=== PATIENT | male | born 1980 | race Two or more races ===

== ENCOUNTER 2024-01-01 16:13 | Emergency (ER) | payer SELFPAY ==
[2024-01-01 16:14] VITALS: BMI 26.9
[2024-01-01 16:21] VITALS: BP 130/79; PULSE 73; RESP 16; TEMP 37.3; O2SAT 98
--- NOTE | 2024-01-01 16:51 | XR_ITS ---
Examination: CT abdomen and pelvis without contrast. Coronal 3-D reconstructions. Sagittal 2-D reconstructions. Date and time of exam:January 01, 2024 1739 hrs. Comparison August 20, 2021 Indications: Right-sided flank pain beginning 3 days ago CTDI: vol (mGy): 7.93 DLP: (mGycm): 194 Technique: Axial images of the abdomen have been obtained, 3 mm slice thickness Intravenous contrast material has not been administered. Low dose protocols were performed. One or more of the following dose reduction techniques were used; automated exposure control, adjustment of the mA and/or KV according to patient size, use of iterative reconstruction technique. Findings: No focal liver or splenic lesions Contracted gallbladder gallbladder wall appears mildly thickened No pancreatic or adrenal mass No renal or ureteral calculi, no hydronephrosis Aorta normal size Normal appendix No bowel obstruction Colonic diverticulosis Acute diverticulitis distal descending colon and sigmoid colon No peridiverticular abscess Urinary bladder wall thickening and air droplet in the urinary bladder, axial image 184 suspicious for fistula between the inflamed sigmoid colon and the bladder No prostatomegaly Impression: Acute diverticulitis distal descending colon and sigmoid colon Urinary bladder wall thickening and air droplet in the urinary bladder, axial image 184 suspicious for fistulous tract between the inflamed colon and the bladder,. No pelvic abscess
--- NOTE | 2024-01-01 16:52 | PD.EDRME ---
Rapid Medical Screening Exam RME Arrival date/time: 01/01/24 16:13 43-year-old male presents emergency department complaints of UTI symptoms Chief Complaint: Abdominal Pain Time Seen by Provider: 01/01/24 16:37 Vital signs: Vital Signs Temperature 99.1 F 01/01/24 16:21 Pulse Rate 73 01/01/24 16:21 Respiratory Rate 16 01/01/24 16:21 Blood Pressure 130/79 01/01/24 16:21 Pulse Oximetry (%) 98 01/01/24 16:21 Oxygen Delivery Method Room Air 01/01/24 16:21
[2024-01-01 17:26] LABS: Basophils # (Auto) 0.1 Thou/mm3 (0.0-0.2); Basophils % (Auto) 1 % (0-2.5); Eosinophils # (Auto) 0.1 Thou/mm3 (0.0-0.5); Eosinophils % (Auto) 1 % (0-10); Hematocrit 40.7 % (41.0-53.0); Hemoglobin 13.6 g/dL (13.5-16.0); Immature Granulocytes % (Auto) 0 % (0-0); Immature Granulocytes Auto 0.02 Thou/mm3 (0.00-0.00); Lymphocytes # (Auto) 1.2 Thou/mm3 (1.0-4.8); Lymphocytes % (Auto) 13 % (10-50); Mean Corpuscular HGB Conc 33.4 g/dl (31.0-37.0); Mean Corpuscular Hemoglobin 27.1 pg (25.0-35.0); Mean Corpuscular Volume 81 fL (80-100); Monocytes % (Auto) 11 % (0-12); Neutrophils # (Auto) 6.6 Thou/mm3 (1.8-7.7); Neutrophils % (Auto) 74 % (37-80); Nucleated Red Blood Cell % 0 /100 WBC (0); Platelet Count 348 Thou/mm3 (140-440); RDW Standard Deviation 40.1 fL (35.1-43.9); Red Blood Count 5.01 Miln/mm3 (4.50-5.90)
[2024-01-01 17:48] LABS: Alanine Aminotransferase 15 U/L (10-49); Albumin, Serum 4.4 gm/dL (3.5-5.0); Albumin/Globulin Ratio 1.3 (1.2-2.2); Alkaline Phosphatase 68 U/L (46-116); Anion Gap 6 (7-16); BUN/Creatinine Ratio 12 Ratio (12-20); Bilirubin,Total 0.5 mg/dL (0.3-1.2); Blood Urea Nitrogen 13 mg/dL (9-23); Calcium 9.6 mg/dL (8.3-10.6); Calcium (Corrected) 9.6 mg/dL (8.5-10.1); Carbon Dioxide 28.4 mMol/L (20.0-31.0); Chloride 101 mMol/L (98-107); Creatinine (Component) 1.1 mg/dL (0.6-1.3); Estimated Creatinine Clearance 73.8 mL/min (>60); Globulin 3.5 gm/dL (2.3-3.5); Glucose 100 mg/dL (74-106); Lipase 38 U/L (12-53); Osmolality,Calculated 270 (275-295); Potassium 4.1 mMol/L (3.4-5.1); Sodium 135 mMol/L (136-145); Total Protein 7.9 gm/dL (5.7-8.2); eGFR > 60 See Note
[2024-01-01 17:52] LABS: Collection Type, Urine Clean Catch; Squamous Epithelial Cell,Urine 0 /hpf (0-5)
[2024-01-01 18:01] LABS: Bilirubin,Urine Negative (Negative); Blood,Urine 1+ (Negative); Budding Yeast,Urine Present; Clarity,Urine Clear (Clear/Hazy); Color,Urine Lt-Yellow (Lt Yel-Yel); Glucose, Urine Negative (Negative); Ketones,Urine Negative (Negative); Leukocyte Esterase,Urine Positive (Negative); Nitrite,Urine Negative (Negative); PH,Urine 6.5 (5.0-7.0); Protein,Urine Trace (Neg - Trace); RBC,Urine 8 /hpf (0-3); Specific Gravity,Urine 1.013 (1.001-1.035); Urobilinogen,Urine Negative mg/dL (0.0-1.0); WBC,Urine 54 /hpf (0-5)
[2024-01-01 18:01] LABS: Aspartate Amino Transferase 12 U/L (0-34)
[2024-01-01 18:13] LABS: Culture Indicated,Urine Yes
[2024-01-01 20:11] VITALS: BP 101/67; PULSE 66; RESP 18; TEMP 37.2; O2SAT 95
--- NOTE | 2024-01-01 20:19 | EDNOTE_ITS ---
ED General RME/HPI General Chief complaint: Abdominal Pain Stated complaint: BLADDER INFECTION AND RIGHT FLANK PAIN Time Seen by Provider: 01/01/24 16:37 Arrival date/time: 01/01/24 16:13 CC: Flank pain HPI ongoing for the past 2 days denies fever chills heavy lifting repetitive motion or blunt trauma. Patient admits he has a chronic diverticulitis and has been ongoing for a long time, the patient is not concerned about that patient also states that he is on 2 rounds of antibiotics the first 1 for over 30 days in the last 3 months for a UTI . Patient denies chest pain shortness of breath or difficulty breathing no other complaints at this time. RME / HPI RME / HPI narrative: 01/01/24 16:13 43-year-old male presents emergency department complaints of UTI symptoms Related Data Previous Rx's ?Medication ?Instructions ?Recorded methocarbamol 750 mg tablet 750 mg PO TID PRN pain #30 tabs 05/13/20 (Robaxin-750) ciprofloxacin HCl 500 mg tablet 500 mg PO BID #14 tabs 08/20/21 (Cipro) hydrocodone 5 mg-acetaminophen 325 1 tab PO Q6H PRN pain #12 tabs 08/20/21 mg tablet metronidazole 500 mg tablet 500 mg PO TID #21 tabs 08/20/21 meloxicam 7.5 mg tablet 7.5 mg PO QDAY #10 tabs 01/01/24 tamsulosin 0.4 mg capsule (Flomax) 0.4 mg PO QDAY #30 caps 01/01/24 Allergies Allergy/AdvReac Type Severity Reaction Status Date / Time No Known Allergies Allergy Verified 01/01/24 16:16 Review of Systems Review of Systems Narrative Review of Systems: GEN: No fever, no chills, no weight loss EYES: No discharge, no visual changes, no pain HEENT: No ear pain, no congestion, no sore throat PULM: No shortness of breath, no cough, no congestion CV: No chest pain, no dyspnea on exertion, no palpitations GI: No nausea, no vomiting, no diarrhea, no pain, no constipation : No frequency, no urgency, no dysuria MUSC/SKEL: No joint pain, + flank pain SKIN: No rash PSYCH: No hallucinations, no depression HEME/LYMPH: No easy bleeding or bruising tendencies NEURO: No weakness, no headache Past Medical History Past Medical History NEUROLOGIC: Negative Neurological Disorders or Seizures CARDIAC: Negative Cardiac Disorders or Congestive Heart Failure RESPIRATORY: Negative Chronic Obstructive Pulmonary Disease (COPD) or Asthma GASTROINTESTINAL: Positive Gastrointestinal Disorders and Diverticulitis GENITOURINARY: Negative Genitourinary Disorders or Renal Disease REPRODUCTIVE: Negative Breast Cancer MUSCULOSKELETAL: Negative Musculoskeletal Disorders ENDOCRINE: Negative Endocrine Disorders, Diabetes Mellitus Type 1 or Diabetes Mellitus Type 2 HEMATOLOGIC: Negative Blood Disorders or Sickle Cell Disease OTHER HISTORY: Positive Hospitalization; Negative Autoimmune Disease, Down Syndrome, Developmental Delay, Shingles, Falls, Anesthesia Reactions, Organ Transplant, Clostridium Difficile, Cancer or Breast Cancer Surgical History SURGICAL: Negative Endocrine Surgery, Ear Surgery, Nephrectomy, Joint Replacement, Neurologic Surgery, Mastectomy or Organ Transplant Social History SMOKING STATUS: Never smoker SUBSTANCE USE: does not use ED Exam Narrative Physical exam: [General: acute distress Head normocephalic HEENT: Within acceptable limits Neck is supple nontender Chest equal chest rise nontender to palpation Respiratory: Clear to auscultation no wheezes crackles or rubs CV: Rate rhythm is regular no murmurs rubs or clicks Abdomen is soft nontender in all 4 quadrants, no masses positive bowel sounds all 4 quadrants Back: No CVA tenderness no spinous process tenderness from cervical spine thoracic and lumbar spine Skin: Intact no petechiae rash induration ulceration or crepitus Extremities: Moving all extremity against resistance cap refill less than 2 seconds neurosensory intact Neuro: Awake alert oriented x3 Glascow coma 15 no focal deficits] Course Course Course Narrative: Patient's case discussed with Dr. Fischer, feels there is no relationship of diverticulitis in the bladder. Patient be discharged home to follow-up with a primary care provider. Quality Measures none Orders Category Date Time Status CT abdomen pelvis wo con Stat Exams 01/01/24 16:51 Completed CBC Stat Lab 01/01/24 17:08 Completed Chlamydia/GC/TV - PCR Stat Lab 01/01/24 16:58 Received Comprehensive Metabolic Panel Stat Lab 01/01/24 17:08 Completed Lipase Stat Lab 01/01/24 17:08 Completed UA, C/S IF [Urinalysis, C/S if Indicated] Stat Lab 01/01/24 16:58 Completed Urine Culture Stat Lab 01/01/24 16:58 Received Vital Signs Vital signs: Vital Signs Temperature 99.1 F 11/19/24 16:21 Pulse Rate 73 01/01/24 16:21 Respiratory Rate 16 01/01/24 16:21 Blood Pressure 130/79 01/01/24 16:21 Pulse Oximetry (%) 98 01/01/24 16:21 Oxygen Delivery Method Room Air 01/01/24 16:21 [facility] Patient data External records reviewed:: [facility] previous records Clinical information provided by:: patient Social determinants that could affect healthcare access:: none Patient has the following chronic illnesses:: Diverticulitis, recurrent UTI in the past 3 months How is presenting disease/condition affected by chronic disease/condition?: u neffected by Evaluation data The following diagnostics were reviewed and interpreted by me:: lab results and radiology exam(s) Lab and/or radiology exams considered but not ordered:: CBC shows no acute leukocytosis anemia thrombocytopenia CMP shows no acute electrolyte imbalances renal impairment transaminitis or T. bili elevation CT shows diverticulitis in the distal descending colon and sigmoid colon, there is also, and urinary bladder wall thickening with air droplets in the urinary bladder. Interpretation Summary: Marcial droplets of air in the bladder, not a primary concern at this point in time patient needs to follow-up with urologist. Medications Medications considered but not ordered:: None Medication administrations:: None Consultations Consultation(s) initiated? (list below): No Diagnosis Differential Diagnosis ED Complaint MDM: Diverticulitis hydroureter nephrosis hydroureter Most likely diagnosis given after review of the tests above:: Flank pain Admission Indicated Admission indicated?: not indicated Explain why admission is indicated or not indicated:: Stable for outpatient follow-up Admission Request Was there a request for admission?: No Disposition Plan Disposition Plan: Discharge Discharge Attestation Discharge Attestation: The patient and all family members were given an opportunity to ask questions and understood the discharge instructions. Discharge instructions specifically effects, indications for sooner follow up or return to the emergency department, and the expected course of current diagnosis. Patient condition: Stable Medical Decision Making Differential Diagnosis Differential Diagnosis: Diverticulitis hydroureter nephrosis hydroureter Lab Data 01/01/24 17:08 01/01/24 17:08 Labs: Lab Results 01/01/24 01/01/24 Range/Units 16:58 17:08 WBC 9.0 (3.8-10.6) Thou/mm3 RBC 5.01 (4.50-5.90) Miln/mm3 Hgb 13.6 (13.5-16.0) g/dL Hct 40.7 L (41.0-53.0) % MCV 81 (80-100) fL MCH 27.1 (25.0-35.0) pg MCHC 33.4 (31.0-37.0) g/dl RDW Std Deviation 40.1 (35.1-43.9) fL Plt Count 348 (140-440) Thou/mm3 Neut % (Auto) 74 (37-80) % Lymph % (Auto) 13 (10-50) % Cannon % (Auto) 11 (0-12) % Eos % (Auto) 1 (0-10) % Baso % (Auto) 1 (0-2.5) % Neut # (Auto) 6.6 (1.8-7.7) Thou/mm3 Lymph # (Auto) 1.2 (1.0-4.8) Thou/mm3 Cannon # (Auto) 1.0 H (0.0-0.8) Thou/mm3 Eos # (Auto) 0.1 (0.0-0.5) Thou/mm3 Baso # (Auto) 0.1 (0.0-0.2) Thou/mm3 Immature Gran # (Auto) 0.02 H (0.00-0.00) Thou/mm3 Absolute Nucleated RBC 0.00 (0.00-0.00) Thou/mm3 Immature Gran % 0 (0-0) % Nucleated RBC % 0 (0) /100 WBC Sodium 135 L (136-145) mMol/L Potassium 4.1 (3.4-5.1) mMol/L Chloride 101 (98-107) mMol/L Carbon Dioxide 28.4 (20.0-31.0) mMol/L Anion Gap 6 L (7-16) BUN 13 (9-23) mg/dL Creatinine 1.1 (0.6-1.3) mg/dL Estim Creat Clear Calc 73.8 (>60) mL/min eGFR > 60 (60 - ) See Note BUN/Creatinine Ratio 12 (12-20) Ratio Glucose 100 (74-106) mg/dL Calculated Osmolality 270 L (275-295) Calcium 9.6 (8.3-10.6) mg/dL Corrected Calcium 9.6 (8.5-10.1) mg/dL Total Bilirubin 0.5 (0.3-1.2) mg/dL AST 12 (0-34) U/L ALT 15 (10-49) U/L Alkaline Phosphatase 68 (46-116) U/L Total Protein 7.9 (5.7-8.2) gm/dL Albumin 4.4 (3.5-5.0) gm/dL Globulin 3.5 (2.3-3.5) gm/dL Albumin/Globulin Ratio 1.3 (1.2-2.2) Lipase 38 (12-53) U/L Ur Collection Type Clean Catch Urine Color Lt-Yellow (Lt Yel-Yel) Urine Clarity Clear (Clear/Hazy) Urine pH 6.5 (5.0-7.0) Ur Specific [place] 1.013 (1.001-1.035) Urine Protein Trace (Neg - Trace) Urine Glucose (UA) Negative (Negative) Urine Ketones Negative (Negative) Urine Blood 1+ A (Negative) Urine Nitrite Negative (Negative) Urine Bilirubin Negative (Negative) Urine Urobilinogen (Auto) Negative (0.0-1.0) mg/dL Ur Leukocyte Esterase Positive (Negative) Urine RBC 8 H (0-3) /hpf Urine WBC 54 H (0-5) /hpf Ur Squamous Epith Cells 0 (0-5) /hpf Urine Bacteria None (None) Urine Yeast (Budding) Present A (None) Ur Culture Indicated? Yes Discharge Plan Plan Patient Disposition: HOME (Self Care) Patient condition on transfer: Stable Prescriptions/Referrals Prescriptions/Med Rec: New meloxicam 7.5 mg tablet 7.5 mg PO QDAY Qty: 10 0RF tamsulosin [Flomax] 0.4 mg capsule 0.4 mg PO QDAY Qty: 30 0RF No Action ciprofloxacin HCl [Cipro] 500 mg tablet 500 mg PO BID Qty: 14 0RF metronidazole 500 mg tablet 500 mg PO TID Qty: 21 0RF hydrocodone-acetaminophen 5-325 mg tablet 1 tab PO Q6H MDD 4 PRN (Reason: pain) Qty: 12 0RF methocarbamol [Robaxin-750] 750 mg tablet 750 mg PO TID PRN (Reason: pain) Qty: 30 0RF Referrals: Rashard Santos MD [Primary Care Provider] - In 1 week Problem List Clinical Impression: Right flank pain Patient/Caregiver Discharge Instructions Education Materials: ED Diverticulitis, ED Flank Pain, Uncertain Cause Print Language: Pashto Stand Alone Forms: [employer] Award Info., Work/School Release, Patient Portal Info Letter PA/STORE SALES MANAGER Supervising Physician PA/STORE SALES MANAGER Supervising Physician: Lor Mcgill ENP
[2024-01-02 09:42] LABS: Chlamydia trachomatis PCR Negative (Not Detect); Neisseria Gonorrhoeae DNA PCR Negative (Not Detect); Trichomonas Negative (Negative)
== END 2024-01-01 20:51 | disposition home or self-care (01) ==
PROVIDERS: Nurse Practitioner Primary Care; Emergency Provider Emergency Medicine; PCP Psychiatry & Neurology Neurology; Referring Provider Emergency Medicine
DX: K57.32 Diverticulitis of large intestine without perforation or abscess without bleeding (principal)
CPT/HCPCS: 36415; 74176; 80053; 81001; 83690; 85025; 87086; 87491; 87591; 87661; 99284

== ENCOUNTER 2024-06-12 06:35 | Day surgery (SDC) | payer MEDICAID, SELFPAY ==
[2024-06-12] VITALS (9 sets, daily range): BP systolic 92–109; BP diastolic 47–73; PULSE 52–58; RESP 12–18; TEMP 36.1–36.7; O2SAT 99–100; BMI 26.9
[2024-06-12] MEDS: SODIUM CHLORIDE 0.9% 500 ML 500 ML 20 ML IV (07:20)
[2024-06-12] MEDS: DiphenhydrAMINE INJ 50 MG/ML VIAL 25 MG IV (07:30)
[2024-06-12] MEDS: fentaNYL CIT INJ 50 mCg/ML AMP 2ML (ASD USE ONLY) IV (07:33)
[2024-06-12] MEDS: MIDAZOLAM INJ 1 MG/ML VIAL 2 ML (ASD USE ONLY) 2 MG IV (07:33)
== END 2024-06-12 08:27 | disposition home or self-care (01) ==
PROVIDERS: PCP Family Medicine; Referring Provider Surgery; Visit Provider Surgery
PROC: 0DBE8ZX Excision of Large Intestine, Via Natural or Artificial Opening Endoscopic, Diagnostic (ICD-10-PCS; CPT 45380; principal; 2024-06-12 07:30)
DX: K57.30 Diverticulosis of large intestine without perforation or abscess without bleeding (principal); D12.0 Benign neoplasm of cecum; K56.699 Other intestinal obstruction unspecified as to partial versus complete obstruction; K64.1 Second degree hemorrhoids; Z86.0100 Personal history of colon polyps, unspecified
CPT/HCPCS: 45380; A4649; J1200; J2250; J3010; J7040

== ENCOUNTER 2024-08-01 07:50 | Inpatient (IN) | payer MEDICAID, SELFPAY ==
[2024-07-30 10:25] VITALS: BMI 27.3
[2024-07-30 11:59] LABS: Basophils # (Auto) 0.1 Thou/mm3 (0.0-0.2); Basophils % (Auto) 1 % (0-2.5); Eosinophils # (Auto) 0.2 Thou/mm3 (0.0-0.5); Eosinophils % (Auto) 2 % (0-10); Hematocrit 44.7 % (41.0-53.0); Hemoglobin 14.8 g/dL (13.5-16.0); Immature Granulocytes % (Auto) 0 % (0-0); Immature Granulocytes Auto 0.03 Thou/mm3 (0.00-0.00); Lymphocytes # (Auto) 1.5 Thou/mm3 (1.0-4.8); Lymphocytes % (Auto) 20 % (10-50); Mean Corpuscular HGB Conc 33.1 g/dl (31.0-37.0); Mean Corpuscular Hemoglobin 27.1 pg (25.0-35.0); Mean Corpuscular Volume 82 fL (80-100); Monocytes # (Auto) 0.7 Thou/mm3 (0.0-0.8); Monocytes % (Auto) 9 % (0-12); Neutrophils # (Auto) 5.2 Thou/mm3 (1.8-7.7); Neutrophils % (Auto) 68 % (37-80); Nucleated Red Blood Cell % 0 /100 WBC (0); Platelet Count 315 Thou/mm3 (140-440); RDW Standard Deviation 42.8 fL (35.1-43.9); Red Blood Count 5.46 Miln/mm3 (4.50-5.90); White Blood Count 7.6 Thou/mm3 (3.8-10.6)
[2024-07-30 12:12] LABS: Alanine Aminotransferase 18 U/L (10-49); Albumin, Serum 4.4 gm/dL (3.5-5.0); Albumin/Globulin Ratio 1.5 (1.2-2.2); Alkaline Phosphatase 64 U/L (46-116); Anion Gap 6 (7-16); Aspartate Amino Transferase 14 U/L (0-34); BUN/Creatinine Ratio 13 Ratio (12-20); Bilirubin,Total 0.5 mg/dL (0.3-1.2); Blood Urea Nitrogen 13 mg/dL (9-23); Calcium 9.2 mg/dL (8.3-10.6); Calcium (Corrected) 9.2 mg/dL (8.5-10.1); Carbon Dioxide 31.2 mMol/L (20.0-31.0); Chloride 102 mMol/L (98-107); Estimated Creatinine Clearance 87.1 mL/min (>60); Glucose 107 mg/dL (74-106); Osmolality,Calculated 277 (275-295); Potassium 4.2 mMol/L (3.4-5.1); Sodium 139 mMol/L (136-145); Total Protein 7.4 gm/dL (5.7-8.2); eGFR > 60 See Note
[2024-08-01] VITALS (10 sets, daily range): BP systolic 114–155; BP diastolic 72–83; PULSE 58–83; RESP 12–98; TEMP 36.2–36.8; O2SAT 98–100; BMI 26.4
--- NOTE | 2024-08-01 07:52 | ESHP_ITS ---
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 The patient was referred for colovesical fistula. He is a Urdu-speaking male. He had a history of recurrent UTIs. He has burning in the urine. He passes some pieces of fragments in his urine. There is no gross hematuria. Nocturia none. He has a history of colitis. PREVIOUS SURGERIES: None. LABORATORY DATA: Urine C and S revealed E. faecalis infection, sensitive to Cipro and nitrofurantoin. He also had E. coli urinary tract infection, sensitive to Cipro. PAST MEDICAL HISTORY: There is no history of diabetes mellitus and no history of hypertension. The patient has history of colitis. SOCIAL HISTORY: The patient has 5 children. ALLERGIES: None known. MEDICATIONS: The patient takes no medicine. CLINICAL EXAMINATION: HEENT: Normal. NECK: Supple. LUNGS: Clear. CARDIOVASCULAR: Heart sounds are normal. ABDOMEN: Soft without any organomegaly. DIAGNOSTIC STUDIES: The patient had CT scan of the abdomen and pelvis, which revealed fistula between the inflamed sigmoid colon and the bladder. Cystoscopy revealed inflamed cystitis on the dome of the bladder on the left side. IMPRESSION: Colovesical fistula. Dr. Locke is going to repair colovesical fistula. He has asked me to put ureteral stents in this patient. The patient is scheduled to have cystoscopy and bilateral ureteral stent placement to identify the ureter during his surgery for colovesical fistula. Planned procedure, risks and complications have been discussed with the patient. The patient has understood them and agreed to proceed. Thank you very much. cc: Dante Locke MD DT: 14:20:02 TT: 16:26:00 Ref: [id number] - TID: [id number]
[2024-08-01] MEDS: RINGERS LACTATED 1000 ML 1,000 ML 20 ML IV (09:10)
--- NOTE | 2024-08-01 10:20 | SUR.PREOP ---
Patient expressed gratitude for prayer before their procedure.
--- NOTE | 2024-08-01 11:31 | XR_ITS ---
Examination: Abdomen AP single view Technique: AP portable supine abdomen, single view Exam date and time: August 01, 2024 at 1131 hours INDICATIONS: Bilateral ureteral stent placement history FINDINGS: U shaped bilateral ureteral stents in proper position No renal or ureteral calculi noted IMPRESSION: U shaped bilateral ureteral stents
--- NOTE | 2024-08-01 13:38 | ESOP_ITS ---
Date of Procedure 08/01/24 Pre Op Diagnosis Colovesical fistula History of diverticulitis Post Op Diagnosis Colovesical fistula Procedure Exploratory laparotomy, takedown of colovesical fistula with sigmoid colectomy Cystoscopy, bilateral ureteral stent placement and repair of bladder by Dr. Garrett Findings Diverticular disease with colovesical fistula Anesthesia GETA Pathology / specimen Other (Sigmoid colon) Estimated Blood Loss 50 Condition Stable Disposition PACU Surgeon Dante Locke MD Surgical Staff Operation Date: 08/01/24 11:15 Case Staff WELL LOGGING CAPTAIN MUD ANALYSIS: John Stuart RNfield software engineer: Shama Batres
--- NOTE | 2024-08-01 13:48 | SUR.PHASEI ---
pt received from OR in recovery bay 7. pt obtunded, breathing unlabored on room air. v/s stable. pt dressing to abd cdi. abd binder in place. report received from Giuliana FUENTES and Suzette LAN.
[2024-08-01] MEDS: HYDROmorphone INJ 2 MG/ML VIAL 0.5 MG IVP (14:16)
[2024-08-01] MEDS: KCL 20 mEq/L in D5-1/2NS 20 MEQ/1,000 ML BAG 60 MEQ IV (14:21)
--- NOTE | 2024-08-01 14:43 | SUR.PHASEI ---
pt asleep but responds to voice, breathing unlabored on 2l nc. v/s stable. pt dressing to abd cdi, abd binder in place. report called to Corby Oro. pt will be transferred to room at this time.
[2024-08-01] MEDS: ACETAMINOPHEN IVPB 1,000 MG/100 ML VIAL 250 MG IV (15:48)
[2024-08-01] MEDS: ONDANSETRON INJ 2 MG/ML INJ 2 ML 4 MG IVP (17:17)
[2024-08-01] MEDS: HYDROmorphone INJ 2 MG/ML VIAL 1 MG IVP ×2 (17:19→20:23)
[2024-08-01] MEDS: CEFOXITIN 2 GM in SODIUM CHLORIDE 0.9% (Popper) 50 ML IV (17:21)
--- NOTE | 2024-08-01 18:37 | ESOP_ITS ---
RE: LAUREANO RACHEL : 1980 DATE OF OPERATION: 08/01/2024 PREOPERATIVE DIAGNOSIS: Colovesical fistula. POSTOPERATIVE DIAGNOSIS: Colovesical fistula. PROCEDURE PERFORMED: Cystoscopy, left ureteral stent, and the right ureteral stent. ANESTHESIA: General. INDICATIONS: The patient is a 44-year-old gentleman with a history of colovesical fistula. He is passing some material through his urine, which is somewhat dark material. He had recurrent UTIs in the past. The patient was found to have a colovesical fistula. He has a history of colitis and sigmoid colon diverticuli. The patient was seen by Dr. Locke, and he is now scheduled to have repair of the colovesical fistula with sigmoid colectomy. Dr. Locke requested cystoscopy and bilateral ureteral stent insertion prior to the surgery. This procedure was scheduled. Planned procedure, risks, and complications have been discussed with the patient. The patient has understood them and agreed to proceed. DESCRIPTION OF PROCEDURE: After the patient was brought to the operating table under adequate general anesthesia and placed in the dorsal lithotomy position, the parts were prepped and draped in the usual fashion. Cystoscopy was then carried out, which revealed adequate urethral meatus and normal-appearing urethra. There was some stricture at the region of the bulbar of urethra, but the scope could be advanced. The prostatic urethra is mildly enlarged. The scope was introduced into the bladder. Residual urine was 2 ounces, yellow and clear, and was sent for culture and sensitivity examination. First, the left ureteral orifice was identified. A 6- Spanish ureteral catheter was then advanced with a guidewire all the way up to the left kidney. The guidewire was removed. In the similar fashion, the right ureteral orifice was catheterized with a 5- Spanish catheter, and the catheter was advanced all the way up to the right kidney. Catheters were left indwelling. The scope was withdrawn. A 16-Spanish Hammonds catheter was then inserted into the bladder. All the catheters were connected with the drainage. The catheters were secured with a Hammonds catheter, and the rest of the procedure for the sigmoid colectomy would be done by Dr. Locke. The patient tolerated the entire procedure well. DT: 12:09:22 TT: 18:35:00 Ref: [id number] - TID: [id number]
--- NOTE | 2024-08-01 18:46 | ESOP_ITS ---
RE: LAUREANO RACHEL : 1980 DATE OF OPERATION: 08/01/2024 PREOPERATIVE DIAGNOSIS: Colovesical fistula. POSTOPERATIVE DIAGNOSIS: Colovesical fistula. PROCEDURE PERFORMED: Repair of the colovesical fistula with closure of fistula opening in the bladder. INDICATION: The patient is a 44-year-old male with a colovesical fistula. He is now scheduled to have repair of the colovesical fistula with sigmoid colectomy. The patient is being seen by Dr. Locke and he is operating at this time. The patient had a laparotomy done and the patient has a sigmoid colon with a bladder fistula. The fistula in the bladder is located on the left side of the dome with a small opening which is about 0.[address] Locke has the fistula tract and has decided to do sigmoid colectomy and I came in to repair the bladder part of the fistula tract. There is an opening in the dome of the bladder, which was repaired with two-layer closure of 2-0 Vicryl sutures. The patient already has a Hammonds catheter in place. Hammonds will be left in for about [address] Locke is now completing his sigmoid colectomy. DT: 12:31:24 TT: 18:44:00 Ref: [id number] - TID: [id number]
[2024-08-01] MEDS: ASCORBIC ACID 250 MG TABLET 500 MG PO (20:18)
[2024-08-01] MEDS: DOCUSATE SOD 100 MG CAPSULE PO (20:18)
[2024-08-02] VITALS (7 sets, daily range): BP systolic 96–115; BP diastolic 61–80; PULSE 62–69; RESP 16–18; TEMP 36.1–36.4; O2SAT 94–100
[2024-08-02] MEDS: ACETAMINOPHEN IVPB 1,000 MG/100 ML VIAL 250 MG IV ×3 (00:27→12:39)
[2024-08-02] MEDS: CEFOXITIN 2 GM in SODIUM CHLORIDE 0.9% (Popper) 50 ML IV ×3 (00:30→13:24)
[2024-08-02] MEDS: HYDROmorphone INJ 2 MG/ML VIAL 1 MG IVP ×5 (01:06→21:13)
[2024-08-02] MEDS: ONDANSETRON INJ 2 MG/ML INJ 2 ML 4 MG IVP ×2 (01:08→17:09)
[2024-08-02] MEDS: KCL 20 mEq/L in D5-1/2NS 20 MEQ/1,000 ML BAG 60 MEQ IV (06:01)
--- NOTE | 2024-08-02 08:38 | PD.SURPROG ---
Documentation for date of: 08/02/24 Subjective Subjective Narrative: Patient is seen and examined. He is resting comfortably, pain is controlled with pain medications. He denies nausea or vomiting he has not passed flatus yet Exam Vital Signs Temp Pulse Resp BP Pulse Ox O2 Del Method O2 Flow Rate 97.6 F 69 16 96/61 98 Nasal Cannula 2 08/02/24 08:00 08/02/24 08:00 08/02/24 08:00 08/02/24 08:00 08/02/24 08:00 08/02/24 08:00 08/02/24 08:00 Constitutional Constitutional: no acute distress Routine Abdominal Exam Comments: Abdomen is soft and minimally distended. Incision with dressings clean, dry and intact. Bowel sounds are absent today Assessment & Plan Assessment Additional comments: Postop day #1 status post sigmoid colectomy, bilateral stent placement and repair of bladder Plan Keep Hammonds catheter for 2 weeks. Antibiotics will be discontinued later today. Increase ambulation and use incentive spirometer. Start clear liquids later today Procedures Procedures Exploratory laparotomy, takedown of colovesical fistula with sigmoid colectomy Cystoscopy, bilateral ureteral stent placement and repair of bladder by Dr. Garrtet
[2024-08-02] MEDS: ASCORBIC ACID 250 MG TABLET 500 MG PO ×2 (08:51→21:04)
[2024-08-02] MEDS: ZINC SULFATE 220 MG CAPSULE PO (08:51)
[2024-08-02] MEDS: DOCUSATE SOD 100 MG CAPSULE PO ×2 (08:51→21:04)
[2024-08-03] VITALS (8 sets, daily range): BP systolic 89–115; BP diastolic 52–85; PULSE 63–87; RESP 17–18; TEMP 36.3–36.7; O2SAT 94–100
[2024-08-03] MEDS: HYDROmorphone INJ 2 MG/ML VIAL 1 MG IVP ×3 (03:58→20:30)
[2024-08-03] MEDS: KCL 20 mEq/L in D5-1/2NS 20 MEQ/1,000 ML BAG 40 MEQ IV (05:54)
[2024-08-03 06:02] LABS: Basophils % (Auto) 0 % (0-2.5); Eosinophils # (Auto) 0.1 Thou/mm3 (0.0-0.5); Eosinophils % (Auto) 0 % (0-10); Hematocrit 40.2 % (41.0-53.0); Hemoglobin 13.3 g/dL (13.5-16.0); Immature Granulocytes % (Auto) 0 % (0-0); Immature Granulocytes Auto 0.05 Thou/mm3 (0.00-0.00); Lymphocytes % (Auto) 8 % (10-50); Mean Corpuscular HGB Conc 33.1 g/dl (31.0-37.0); Mean Corpuscular Hemoglobin 27.4 pg (25.0-35.0); Mean Corpuscular Volume 83 fL (80-100); Monocytes % (Auto) 8 % (0-12); Neutrophils # (Auto) 10.1 Thou/mm3 (1.8-7.7); Neutrophils % (Auto) 83 % (37-80); Nucleated Red Blood Cell % 0 /100 WBC (0); Platelet Count 263 Thou/mm3 (140-440); RDW Standard Deviation 43.5 fL (35.1-43.9); Red Blood Count 4.86 Miln/mm3 (4.50-5.90); White Blood Count 12.2 Thou/mm3 (3.8-10.6)
[2024-08-03 06:35] LABS: Albumin, Serum 3.7 gm/dL (3.5-5.0); Anion Gap 8 (7-16); BUN/Creatinine Ratio 7 Ratio (12-20); Blood Urea Nitrogen 7 mg/dL (9-23); Calcium 8.8 mg/dL (8.3-10.6); Carbon Dioxide 27.6 mMol/L (20.0-31.0); Chloride 102 mMol/L (98-107); Estimated Creatinine Clearance 80.3 mL/min (>60); Glucose 107 mg/dL (74-106); Magnesium 1.9 mg/dL (1.6-2.6); Osmolality,Calculated 273 (275-295); Phosphorous 2.4 mg/dL (2.4-5.1); Potassium 4.1 mMol/L (3.4-5.1); Sodium 138 mMol/L (136-145); eGFR > 60 See Note
[2024-08-03] MEDS: DOCUSATE SOD 100 MG CAPSULE PO ×2 (08:02→20:30)
[2024-08-03] MEDS: ASCORBIC ACID 250 MG TABLET 500 MG PO ×2 (08:02→20:30)
[2024-08-03] MEDS: ZINC SULFATE 220 MG CAPSULE PO (08:03)
--- NOTE | 2024-08-03 14:48 | PD.SURPROG ---
Documentation for date of: 08/03/24 Subjective Subjective Narrative: Patient is seen and examined. His pain is improving. He is tolerating clear liquids without nausea or vomiting. He started passing some flatus but no bowel movement yet Exam Vital Signs Temp Pulse Resp BP Pulse Ox O2 Del Method O2 Flow Rate 97.8 F 69 18 110/71 94 L Nasal Cannula 2 08/03/24 12:00 08/03/24 12:00 08/03/24 12:00 08/03/24 12:08/03/24 12:08/03/24 12:08/03/24 10:40 Constitutional Constitutional: no acute distress Routine Abdominal Exam Comments: Abdomen is soft and not distended. He has coby-incisional tenderness. Incision with dressing clean, dry and intact Assessment & Plan Assessment Additional comments: Postop day #2 status post sigmoid colectomy, bilateral stent placement and repair of bladder Plan Advance to full liquids. DC IV fluids. Increase ambulation and use incentive spirometer Procedures Procedures Exploratory laparotomy, takedown of colovesical fistula with sigmoid colectomy Cystoscopy, bilateral ureteral stent placement and repair of bladder by Dr. Garrett
[2024-08-04] VITALS: BP 117/76; PULSE 68; RESP 17; TEMP 36.4; O2SAT 96
[2024-08-04 04:00] VITALS: BP 102/55; PULSE 64; RESP 16; TEMP 36.3; O2SAT 96
[2024-08-04 07:53] VITALS: BP 101/60; PULSE 87; RESP 16; TEMP 36.3; O2SAT 96
[2024-08-04 07:56] VITALS: PULSE 64; RESP 18; O2SAT 98
--- NOTE | 2024-08-04 08:19 | PD.SURPROG ---
Documentation for date of: 08/04/24 Subjective Subjective Narrative: Patient is seen and examined. His pain is improving. He is tolerating full liquids and Ensure supplements without nausea or vomiting. He started passing flatus and had bowel movement Exam Vital Signs Temp Pulse Resp BP Pulse Ox O2 Del Method O2 Flow Rate 97.4 F 87 16 101/60 96 Room Air 2 08/04/24 07:53 08/04/24 07:53 08/04/24 07:53 08/04/24 07:53 08/04/24 07:53 08/04/24 07:53 08/03/24 10:40 Constitutional Constitutional: no acute distress Routine Abdominal Exam Comments: Abdomen is soft and nondistended. Incision is clean, dry and intact. Bowel sounds are active and present Assessment & Plan Assessment Additional comments: Postop day #3 Plan Advance to soft diet. Will discharge home after lunch if tolerating diet Procedures Procedures Exploratory laparotomy, takedown of colovesical fistula with sigmoid colectomy Cystoscopy, bilateral ureteral stent placement and repair of bladder by Dr. Garrett
--- NOTE | 2024-08-04 08:23 | ESDS_ITS ---
Planned Discharge Date 08/04/24 DS: Providers Provider Date of admission: 08/01/24 07:50 Primary care physician: Mynor Wolf MD Admitting Provider: Dante Locke MD Attending Provider on Admission: Dante Locke MD Consults: 08/01/24 16:09 [facility] Referral - Knowledge Deficit Routine Comment: Positive screening for knowledge deficit needs. 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 He had cystoscopy by Dr. Garrett that showed some bladder inflammation, and had colonoscopy by hi that revealed diverticular disease. Patient underwent exploratory laparotomy, takedown of colovesical fistula with sigmoid colectomy. He also underwent cystoscopy with bilateral stent placement and repair of bladder by Dr. Garrett. Postoperatively his stents were removed but the Hammonds catheter was kept in place. He was started on clear liquids and his diet was gradually advanced to soft diet. He was eating and tolerating diet well without nausea or vomiting. He started passing flatus and had bowel movement. His incision is clean, dry and intact. He has remained hemodynamically stable. He is being discharged home in stable condition. He will be discharged with Hammonds catheter for 2 weeks and will be removed as outpatient. Exam Vital Signs Temp Pulse Resp BP Pulse Ox O2 Del Method O2 Flow Rate 97.4 F 87 16 101/60 96 Room Air 2 08/04/24 07:53 08/04/24 07:53 08/04/24 07:53 08/04/24 07:53 08/04/24 07:53 08/04/24 07:53 08/03/24 10:40 Constitutional Constitutional: no acute distress Routine Abdominal Exam Comments: Abdomen is soft and nondistended. Bowel sounds are active and present. Incision is clean, dry and intact Discharge Plan Plan Patient Disposition: HOME (Self Care) Prescriptions/Referrals Prescriptions/Med Rec: New ascorbic acid (vitamin C) [Vitamin C] 250 mg Tablet 500 mg PO BID Qty: 60 0RF docusate sodium 100 mg Capsule 100 mg PO BID Qty: 40 0RF zinc sulfate 50 mg zinc (220 mg) Capsule 220 mg PO QDAY Qty: 30 0RF hydrocodone-acetaminophen 5-325 mg tablet 1 tab PO Q6H MDD 4 PRN (Reason: pain (scale score 7-10)) Qty: 30 0RF ibuprofen 600 mg tablet 600 mg PO Q8H PRN (Reason: pain (scale score 4-6)) Qty: 15 0RF Referrals: Mynor Wolf MD [Primary Care Provider] - Patient/Caregiver Discharge Instructions Discharge Activity: activity as tolerated Education Materials: Preventing Surgical Site Infections Print Language: Serbian Activity Restrictions/Additional Instructions: May shower. Avoid lifting, straining, pulling or pushing for 8 weeks. May take over the counter laxatives if no bowel movement in 2 days. Empty Hammonds catheter as directed. Follow up with Dr. Locek in 2 weeks, call [phone] for an appointment. Follow-up with Dr. Garrett in 2 weeks to remove Hammonds catheter, please call his office for an appointment. Continue to have soft diet for 1 week then advance to high-fiber diet. Stand Alone Forms: [employer] Award Info., Patient Portal Info Letter Discharge Order Discharge Orders: Discharge (Routine); Ordered 08/04/24 Ordered By: Dante Locke Procedures Procedure Date 08/01/24 Procedures Exploratory laparotomy, takedown of colovesical fistula with sigmoid colectomy Cystoscopy, bilateral ureteral stent placement and repair of bladder by Dr. Garrett
[2024-08-04] MEDS: ASCORBIC ACID 250 MG TABLET 500 MG PO (09:19)
[2024-08-04] MEDS: ZINC SULFATE 220 MG CAPSULE PO (09:19)
[2024-08-04] MEDS: HYDROmorphone INJ 2 MG/ML VIAL 1 MG IVP (09:19)
[2024-08-04] MEDS: DOCUSATE SOD 100 MG CAPSULE PO (09:19)
--- NOTE | 2024-08-04 09:59 | PC.SS ---
Paulino Alvarado is a 44-year-old male admitted to [facility] for EX Lap 00718. SS conducted bedside contact with the patient to complete initial assessment and to discuss discharge planning. Role and reason explained. Patient confirmed demographic information. Patient identifies his sister Lucía Orr [phone] as his surrogate decision maker. Pt states he is able to complete all ADL?s independent. Pt does not possesses any DME. Pts PCP is KATIE Wolf. Pharmacy of choice is [facility]. Discharge options discussed and the pt wishes to return home.? Pt has his vehicle here and wishes to transport himself home upon DC. No further intervention required at this time, social media marketing specialist would be available to address any further concerns. DC Plan: Home Contact: Sister Lucía Address: Confirmed on face sheet PCP: Luciano
[2024-08-04 12:00] VITALS: BP 112/72; PULSE 80; RESP 18; TEMP 36.3; O2SAT 98
== END 2024-08-04 14:56 | disposition home or self-care (01) | DRG 441 ==
LOC: S2W1 13:45 → S3NX 14:50
PROVIDERS: Anesthesiology; Surgery; Admitting Provider Surgery; PCP Family Medicine; Visit Provider Surgery
PROC: 0TQB0ZZ Repair Bladder, Open Approach (ICD-10-PCS; principal; 2024-08-01 11:00)
PROC: (CPT 52282; 2024-08-01 11:00)
DX: N32.2 Vesical fistula, not elsewhere classified (principal); K57.30 Diverticulosis of large intestine without perforation or abscess without bleeding; N32.1 Vesicointestinal fistula; Z87.440 Personal history of urinary (tract) infections
CPT/HCPCS: 36415; 74018; 80053; 80069; 83735; 85025; 87086; 94664; A4217; A4649; C1769; J0131; J0694; J1100; J1171; J2405; J2704; J3010; J3480; J3490; J7050; J7120; A9270; J7999